=== PATIENT | male | born 1940 | race Asian ===

== ENCOUNTER → 2019-08-22 | Outpatient (CLI) | payer MEDICARE, OTHER ==
[~2019-08-22] VITALS: Ht 180.3 cm; Wt 90.5 kg
[~2019-08-22] MED LIST: ADV500 IH; METO-408 PO; NAPR-1181 PO; SIMV-43 PO; SITA100 PO
[2019-08-22 10:31] VITALS: BP 114/66
== END | disposition home or self-care (01) ==
LOC: SRCNTR 10:30
PROVIDERS: ATTEND Internal Medicine Critical Care Medicine
DX: J44.1 Chronic obstructive pulmonary disease with (acute) exacerbation (principal); I10 Essential (primary) hypertension; E78.5 Hyperlipidemia, unspecified; E11.9 Type 2 diabetes mellitus without complications; N40.0 Benign prostatic hyperplasia without lower urinary tract symptoms
CPT/HCPCS: G0463